=== PATIENT | female | born 1945 | race Caucasian/White ===

== ENCOUNTER 2022-05-28 22:36 | Inpatient (IN) | payer BC, OTHER ==
[~2022-05-28] VITALS: Ht 160 cm; Wt 73.0 kg
--- NOTE | 2022-05-28 22:45 | NUR ---
[id number] FROM HOME C/O SOB XFEW DAYS SATTING 95% RA AT TRIAGE. PATIENT IS AAOX4. ABLE TO MAKE NEEDS KNOWN. ON RA. ATTACHED TO MONITOR. VITALS CHECKED.
--- NOTE | 2022-05-28 22:56 | NUR ---
XRAY DONE AT BEDSIDE
--- NOTE | 2022-05-28 22:56 | NUR ---
COVID SWAB DONE AND SENT TO LAB
--- NOTE | 2022-05-28 23:10 | NUR ---
THROUGH FREIGHT ENGINEER AT BEDSIDE
[2022-05-29 00:11] LABS: BASOPHILS % (AUTO) 0.6 % (0.0-2.0); EOSINOPHILS % (AUTO) 2.9 % (0.0-6.0); HEMATOCRIT 35 % (33-45); HEMOGLOBIN 11.2 g/dL (11.5-14.8); LYMPHOCYTES # (AUTO) 1.5 K/uL (0.8-4.8); LYMPHOCYTES % (AUTO) 23.4 % (20.0-44.0); MEAN CORPUSCULAR HGB CONC 32 g/dl (31.0-36.0); MEAN CORPUSCULAR VOLUME 86 fL (82-100); MONOCYTES # (AUTO) 0.7 K/uL (0.1-1.30); MONOCYTES % (AUTO) 11.6 % (2.0-12.0); NEUTROPHILS # (AUTO) 3.9 K/uL (1.8-8.9); NEUTROPHILS % (AUTO) 61.5 % (43.0-81.0); PLATELET COUNT (AUTO) 228 K/uL (150-450); RED BLOOD CELL COUNT(AUTO) 4.06 MIL/uL (4.0-5.2); WHITE BLOOD COUNT (AUTO) 6.3 K/uL (4.3-11.0)
[2022-05-29 00:24] LABS: CARBON DIOXIDE 28 mmol/L (21-32); CHLORIDE 102 mmol/L (98-107); CREATININE 0.9 mg/dL (0.6-1.3); GLUCOSE 100 mg/dL (74-106); POTASSIUM 3.9 mmol/L (3.5-5.1); SODIUM SERUM 136 mmol/L (136-145); UREA NITROGEN, BLOOD 21 mg/dL (7-18)
[2022-05-29 00:38] LABS: ALANINE AMINOTRANSFERASE 301 U/L (12-78); ALBUMIN 3.4 g/dL (3.4-5.0); ALKALINE PHOSPHATASE 239 U/L (46-116); ASPARTATE AMINOTRANSFERASE 94 U/L (15-37); BILIRUBIN,DIRECT 0.2 mg/dL (0.0-0.2); BILIRUBIN,TOTAL 0.8 mg/dL (0.2-1.0); TOTAL PROTEIN, SERUM 7.7 g/dL (6.4-8.2)
[2022-05-29] MEDS ORDERED: ASPIRIN 325 MG TABLET PO ONE (01:00)
[2022-05-29] MEDS ORDERED: ASPIRIN 325 MG TABLET ONE (01:33)
[2022-05-29] MEDS ORDERED: ONDANSETRON HCL/PF 4 MG/2 ML VIAL IVP PRN (02:30)
[2022-05-29] MEDS ORDERED: MAGNESIUM HYDROXIDE 30 ML UDC PO PRN (02:30)
[2022-05-29] MEDS ORDERED: Z GUARD REMEDY 4 OZ OINT TP PRN (02:30)
--- NOTE | 2022-05-29 02:47 | NUR ---
CARMELINA ([facility]) [phone]. GIVE UPDATE TO [facility] Q SHIFT
--- NOTE | 2022-05-29 03:49 | NUR ---
PATIENT REPOSITIONED COMFORTABLY. NEEDS ATTENDED.
--- NOTE | 2022-05-29 04:07 | NUR ---
PLACED ON OXYGEN 3L NASAL CANNULA PRN.
--- NOTE | 2022-05-29 07:40 | NUR ---
DR DUDLEY AT BEDSIDE W/ PT
--- NOTE | 2022-05-29 08:00 | NUR ---
patient needs attended
[2022-05-29] MEDS ORDERED: DULO20CA19 PO (08:21)
[2022-05-29] MEDS ORDERED: APIX5TAB PO (08:21)
[2022-05-29] MEDS ORDERED: GABA-532 PO (08:21)
[2022-05-29] MEDS ORDERED: TOFA11TA PO (08:21)
[2022-05-29] MEDS ORDERED: METO50TA16 PO (08:21)
[2022-05-29] MEDS ORDERED: HYDR-3980 PO (08:21)
[2022-05-29] MEDS ORDERED: LOPE2CAP14 PO (08:21)
[2022-05-29] MEDS ORDERED: CETI10TA14 PO (08:21)
--- NOTE | 2022-05-29 08:51 | NUR ---
SON SEEMA CALLED. LEFT CONTACT # [phone]
[2022-05-29] MEDS ORDERED: ASPIRIN 81 MG TAB.CHEW ONE (09:09)
[2022-05-29] MEDS: ASPIRIN 81 MG TAB.CHEW PO SCH (09:15)
[2022-05-29] MEDS ORDERED: HYDROCODONE/APAP 10/325MG TABLET PO PRN (10:00)
[2022-05-29] MEDS ORDERED: LOPERAMIDE HCL (2 MG CAP) 2 MG CAPSULE PO PRN (10:00)
[2022-05-29] MEDS: FUROSEMIDE 40 MG/4 ML VIAL IV SCH ×2 (10:30→17:00)
[2022-05-29] MEDS ORDERED: FUROSEMIDE 40 MG/4 ML VIAL ONE (10:31)
[2022-05-29 10:47] LABS: BASOPHILS % (AUTO) 0.5 % (0.0-2.0); HEMATOCRIT 37 % (33-45); HEMOGLOBIN 11.6 g/dL (11.5-14.8); LYMPHOCYTES # (AUTO) 0.7 K/uL (0.8-4.8); LYMPHOCYTES % (AUTO) 10.7 % (20.0-44.0); MEAN CORPUSCULAR HGB CONC 32 g/dl (31.0-36.0); MEAN CORPUSCULAR VOLUME 87 fL (82-100); MONOCYTES # (AUTO) 0.7 K/uL (0.1-1.30); MONOCYTES % (AUTO) 10.6 % (2.0-12.0); NEUTROPHILS # (AUTO) 5.2 K/uL (1.8-8.9); NEUTROPHILS % (AUTO) 77.2 % (43.0-81.0); PLATELET COUNT (AUTO) 216 K/uL (150-450); WHITE BLOOD COUNT (AUTO) 6.7 K/uL (4.3-11.0)
[2022-05-29 10:58] LABS: CALCIUM, SERUM 8.6 mg/dL (8.5-10.1); CREATININE 0.9 mg/dL (0.6-1.3); MAGNESIUM 1.9 mg/dL (1.8-2.4); POTASSIUM 4.2 mmol/L (3.5-5.1)
[2022-05-29] MEDS: METOPROLOL TARTRATE 50 MG TABLET PO SCH ×2 (11:00→22:46)
[2022-05-29] MEDS: DULOXETINE HCL 20 MG CAPSULE.DR PO SCH (11:10)
[2022-05-29] MEDS ORDERED: METOPROLOL TARTRATE 50 MG TABLET ONE (11:10)
[2022-05-29] MEDS ORDERED: HYDROCODONE/APAP 10/325MG TABLET ONE ×2 (12:24→17:12)
[2022-05-29] MEDS: HYDROCODONE/APAP 10/325MG TABLET PO PRN ×2 (12:27→17:17)
[2022-05-29] MEDS ORDERED: GABAPENTIN 100 MG CAPSULE ONE ×2 (13:21→17:10)
[2022-05-29] MEDS ORDERED: GABAPENTIN 300 MG CAPSULE ONE ×2 (13:22→17:10)
[2022-05-29] MEDS: GABAPENTIN 400 MG CAPSULE PO SCH ×2 (13:25→17:00)
[2022-05-29] MEDS ORDERED: ATORVASTATIN 10 MG TABLET PO SCH (16:30)
[2022-05-29] MEDS ORDERED: ATORVASTATIN 10 MG TABLET ONE (16:41)
[2022-05-29 17:40] LABS: THYROID STIMULATING HORMONE 1.63 uIU/mL (0.358-3.74)
--- NOTE | 2022-05-29 20:48 | NUR ---
RECEIVED REPORT FROM XENA CORDOBA. PATIENT IS FOR ADMISSION DUE TO NSTEMI. RECEIVED PT ON O2 INH AT 3LPM. WITH IV CATH ON LEFT FA G20. PATIENT IS AAOX4. ABLE TO MAKE NEEDS KNOWN. NO CP, NO SOB NOTED. ATTACHED TO MONITOR. VITALS CHECKED.
--- NOTE | 2022-05-29 21:23 | NUR ---
REPORT GIVEN TO ADE JOINER.
--- NOTE | 2022-05-29 21:24 | NUR ---
UPDATE GIVEN TO TOMMIE STEPHENSON.
--- NOTE | 2022-05-29 22:09 | NUR ---
TRANSFERRED TO ROOM VIA ACLS
[2022-05-29] MEDS: APIXABAN 5 MG TABLET PO SCH (22:46)
[2022-05-29] MEDS: MAG HYDROX/AL HYDROX/SIMETH 30 ML UDC PO PRN (22:47)
[2022-05-30] VITALS: BP 126/71
[2022-05-30] MEDS: HYDROCODONE/APAP 10/325MG TABLET PO PRN ×2 (03:10→14:20)
[2022-05-30 04:00] VITALS: BP 94/58
[2022-05-30] MEDS: MAG HYDROX/AL HYDROX/SIMETH 30 ML UDC PO PRN (05:04)
[2022-05-30 06:44] LABS: CALCIUM, SERUM 8.9 mg/dL (8.5-10.1); CARBON DIOXIDE 30 mmol/L (21-32); CHLORIDE 97 mmol/L (98-107); CREATININE 1.4 mg/dL (0.6-1.3); GLUCOSE 174 mg/dL (74-106); MAGNESIUM 2.6 mg/dL (1.8-2.4); PHOSPHORUS 4.7 mg/dL (2.5-4.9); POTASSIUM 4.1 mmol/L (3.5-5.1); SODIUM SERUM 137 mmol/L (136-145); UREA NITROGEN, BLOOD 49 mg/dL (7-18)
[2022-05-30 06:57] LABS: CHOLESTEROL 277 mg/dL (<200); HDL CHOLESTEROL 61 mg/dL (40-60); LDL 170 mg/dL (0-99); TRIGLYCERIDES 180 mg/dL (30-150)
[2022-05-30 07:04] LABS: ALANINE AMINOTRANSFERASE 312 U/L (12-78); ALBUMIN 3.3 g/dL (3.4-5.0); ALKALINE PHOSPHATASE 248 U/L (46-116); ASPARTATE AMINOTRANSFERASE 116 U/L (15-37); BILIRUBIN,TOTAL 1.6 mg/dL (0.2-1.0); TOTAL PROTEIN, SERUM 7.7 g/dL (6.4-8.2)
--- NOTE | 2022-05-30 07:27 | NUR ---
RN CLOSING NOTE PT A&OX4 BUT TIRED. SKIN IS PALE AND DRY. RESPIRATIONS EVEN AND UNLABORED ON NC @ 3 LPM. LFA 20G IV INTACT. NO ACUTE SIGNS OF DISTRESS. BED LOCKED AND AT LOWEST LEVEL. X2 RAILS UP AND CALL LIGHT WITHIN REACH.
--- NOTE | 2022-05-30 07:45 | NUR ---
RN OPENING NOTE PT IS ALERT AND ORIENTED X2-3. PT IS ON 3 L NASAL CANNULA TOLERATING ABOVE 92% PT ON TELE MONITOR SINUS RHYTM/SINUS TACHYCARDIA..NO SIGNS OF PAIN OR DISCOMFORT NOTED AT THIS TIME. IV INTACT, PATENT AND FLUSHIGN WELL. ALL SAFETY MEASURES IN PLACE.CALL LIGHT WITHIN [facility]. BED LOCKED AT LOWEST POSITION.SIDE RAILS UP X2.
--- NOTE | 2022-05-30 07:55 | NUR ---
notified of critical lab troponin is 74
[2022-05-30 08:00] VITALS: BP 125/69
[2022-05-30 08:04] LABS: BASOPHILS % (AUTO) 0.1 % (0.0-2.0); HEMATOCRIT 36 % (33-45); HEMOGLOBIN 11.5 g/dL (11.5-14.8); LYMPHOCYTES # (AUTO) 0.5 K/uL (0.8-4.8); LYMPHOCYTES % (AUTO) 2.6 % (20.0-44.0); MEAN CORPUSCULAR HGB CONC 32 g/dl (31.0-36.0); MEAN CORPUSCULAR VOLUME 87 fL (82-100); MONOCYTES # (AUTO) 1.3 K/uL (0.1-1.30); MONOCYTES % (AUTO) 6.8 % (2.0-12.0); NEUTROPHILS # (AUTO) 17.1 K/uL (1.8-8.9); NEUTROPHILS % (AUTO) 90.5 % (43.0-81.0); PLATELET COUNT (AUTO) 289 K/uL (150-450); WHITE BLOOD COUNT (AUTO) 18.9 K/uL (4.3-11.0)
[2022-05-30] MEDS: ASPIRIN 81 MG TAB.CHEW PO SCH (08:28)
[2022-05-30] MEDS: FUROSEMIDE 40 MG/4 ML VIAL IV SCH ×2 (08:28→16:48)
[2022-05-30] MEDS: DULOXETINE HCL 20 MG CAPSULE.DR PO SCH (08:28)
[2022-05-30] MEDS: APIXABAN 5 MG TABLET PO SCH ×2 (08:29→20:59)
[2022-05-30] MEDS: ATORVASTATIN 40 MG TABLET PO SCH (08:29)
[2022-05-30] MEDS: GABAPENTIN 400 MG CAPSULE PO SCH ×3 (08:29→16:49)
[2022-05-30] MEDS: METOPROLOL TARTRATE 50 MG TABLET PO SCH ×2 (08:30→21:00)
--- NOTE | 2022-05-30 08:46 | NUR ---
RN NOTE PATIENT REFUSED 0900 LASIX. WITHDRAW FROM VIAL.DISCARDED IT IN SHARPS CONTAINER. 0900 LASIX NOT GIVEN
[2022-05-30] MEDS ORDERED: TOFACITINIB CITRATE 11 MG PO SCH (09:00)
[2022-05-30] MEDS: IV NS 0.9% 1,000 ML IV SCH ×2 (10:24→20:11)
[2022-05-30 12:00] VITALS: BP 102/53
[2022-05-30 16:00] VITALS: BP 101/49
--- NOTE | 2022-05-30 17:00 | NUR ---
RN NOTE SPOKE WITH PT SON CARMELINA AND MARKOS UPDATED ABOUT PT CONDITION.
--- NOTE | 2022-05-30 17:30 | NUR ---
RN NOTE PT REQUESTING ANXIETY MEDICATION. NOTIFIED AND BANK CONSULTANT YOSSI. SY PHOTO PRINT SPECIALIST FOR DR. DUDLEY AT THIS TIME. ORDERED ANXIETY MEDICATION
--- NOTE | 2022-05-30 18:00 | NUR ---
RN NOTE SPOKE WITH CARMELINA PT SON AND UPDATED ABOUT PATIENT CONDITION. PT REQUESTED TO SPEAK WITH DR. VINCENT REGARDING PT CONDITION. NOTIFIED DR. VINCENT.PROVIDED NUMBER TO PT SON TO UPDATE ABOUT CONDITION
--- NOTE | 2022-05-30 19:30 | NUR ---
RN OPENING NOTE PATIENT IS AWAKE IN BED, PATIENT IS CURRENTLY A/O X 1-2 AT THIS TIME. REORIENTED PATIENT TO PLACE AND TIME. PATIENT IS ON 3 LPM VIA NASAL CANNULA, TOLERATING WELL. NO SOB NOTED AT THIS TIME. TELE MONITOR READS ST 105 BPM A THIS TIME. LFA 20G PATENT AND INTACT WITH ONGOING NS AT 100 ML/HR. PATIENT DOES NOT REPORT ANY PAIN AT THIS TIME. SAFETY MEASURES IN PLACE: BED LOCKED AND IN LOWEST POSITION, CALL LIGHT WITHIN REACH, SIDE RAILS UP, BED ALARM ON. WILL MONITOR PATIENT CLOSELY.
[2022-05-30 20:00] VITALS: BP 106/55
--- NOTE | 2022-05-30 20:48 | NUR ---
RN CLOSING NOTE PT IS ALERT AND ORIENTED X2-3. PT IS ON 3 L NASAL CANNULA TOLERATING ABOVE 92% PT ON TELE MONITOR SINUS TACHYCARDIA.NO SIGNS OF PAIN OR DISCOMFORT NOTED AT THIS TIME. IV INTACT, PATENT AND FLUSHING WELL. ALL SAFETY MEASURES IN PLACE.CALL LIGHT WITHIN REACH. BED LOCKED AT LOWEST POSITION.SIDE RAILS UP X2. ENDORSED TO EMT/PARAMEDIC FOR CONTINUITY OF CARE
[2022-05-30] MEDS: ACETAMINOPHEN 325 MG TABLET PO PRN (21:00)
[2022-05-30] MEDS: ALPRAZOLAM 0.25 MG TABLET PO PRN (22:24)
--- NOTE | 2022-05-30 22:24 | NUR ---
RN NOTE PATIENT GIVEN XANAX PATIENT IS ANXIOUS AND RESTLESS.
[2022-05-31] VITALS (7 sets, daily range): BP systolic 84–130; BP diastolic 51–65
[2022-05-31 06:24] LABS: BASOPHILS # (AUTO) 0.1 K/uL (0.0-0.2); BASOPHILS % (AUTO) 0.2 % (0.0-2.0); HEMATOCRIT 28 % (33-45); HEMOGLOBIN 8.6 g/dL (11.5-14.8); MEAN CORPUSCULAR HGB CONC 31 g/dl (31.0-36.0); MEAN CORPUSCULAR VOLUME 88 fL (82-100); MONOCYTES # (AUTO) 1.6 K/uL (0.1-1.30); MONOCYTES % (AUTO) 6.3 % (2.0-12.0); NEUTROPHILS # (AUTO) 22.1 K/uL (1.8-8.9); NEUTROPHILS % (AUTO) 89.5 % (43.0-81.0); PLATELET COUNT (AUTO) 338 K/uL (150-450); RED BLOOD CELL COUNT(AUTO) 3.15 MIL/uL (4.0-5.2); WHITE BLOOD COUNT (AUTO) 24.7 K/uL (4.3-11.0)
[2022-05-31 06:57] LABS: ALBUMIN 2.7 g/dL (3.4-5.0); BILIRUBIN,TOTAL 1.3 mg/dL (0.2-1.0); CALCIUM, SERUM 7.6 mg/dL (8.5-10.1); MAGNESIUM 2.1 mg/dL (1.8-2.4); PHOSPHORUS 2.4 mg/dL (2.5-4.9); POTASSIUM 3.6 mmol/L (3.5-5.1); TOTAL PROTEIN, SERUM 6.3 g/dL (6.4-8.2)
[2022-05-31] MEDS ORDERED: IV NS 0.9% 500 ML IV ONE (07:00)
--- NOTE | 2022-05-31 07:34 | NUR ---
RN CLOSING NOTE PATIENT IS AWAKE IN BED, PATIENT IS CURRENTLY A/O X 1-2 AT THIS TIME. PATIENT IS ON 3 LPM VIA NASAL CANNULA, TOLERATING WELL, 96% O2 SAT. NO SOB NOTED AT THIS TIME. TELE MONITOR READS ST 120S BPM A THIS TIME. INFORMED MD REGARDING PATIENT COMPLAINING OF ABDOMINAL PAIN, PATIENT LOOKING PALE AND HAVING BP AROUND 90S WELL 1 X BLACK STOOL. CHARGE NURSE ORA PRINGLE. MD ORDERED NS 500 ML BOLUS X 1, PROTONIX 40 MG IV Q 12 HR, NPO STATUS, AND STOOL OB. LFA 20G PATENT AND INTACT WITH ONGOING 500 ML BOLUS PER MD ORDER. STOOL OB COLLECTED AND SENT TO LAB, AND PROTONIX 40 MG IV ORDERED. PATIENT DOES NOT REPORT ANY PAIN AT THIS TIME. SAFETY MEASURES IN PLACE: BED LOCKED AND IN LOWEST POSITION, CALL LIGHT WITHIN REACH, SIDE RAILS UP, BED ALARM ON. ALL NEEDS MET AND ATTENDED. ALL ORDERS CARRIED OUT. ENDORSED TO DAY SHIFT NURSE FOR ATUL.
--- NOTE | 2022-05-31 09:00 | NUR ---
PATIENT AMBASSADOR OPENING NOTE PATIENT IS AWAKE IN BED, PATIENT IS CURRENTLY A/O X 1-2 AT THIS TIME. REORIENTED PATIENT TO PLACE AND TIME. PATIENT IS ON 3 LPM VIA NASAL CANNULA, TOLERATING WELL. NO SOB NOTED AT THIS TIME. TELE MONITOR READS ST 113 BPM A THIS TIME. LFA 20G PATENT AND INTACT FLUSHES WELL. PATIENT DOES NOT REPORT ANY PAIN AT THIS TIME. SAFETY MEASURES IN PLACE: BED LOCKED AND IN LOWEST POSITION, CALL LIGHT WITHIN REACH, SIDE RAILS UP, BED ALARM ON. WILL CONTINUE PLAN OF CARE.
[2022-05-31] MEDS: PANTOPRAZOLE 40 MG VIAL IV SCH ×2 (09:05→20:49)
[2022-05-31] MEDS: DULOXETINE HCL 20 MG CAPSULE.DR PO SCH (09:05)
[2022-05-31] MEDS: ATORVASTATIN 40 MG TABLET PO SCH (09:05)
[2022-05-31] MEDS: NEUTRA PHOS 1 POWD.PACKET PO SCH ×2 (09:05→16:22)
[2022-05-31] MEDS: ASPIRIN 81 MG TAB.CHEW PO SCH (09:06)
[2022-05-31] MEDS: METOPROLOL TARTRATE 50 MG TABLET PO SCH ×2 (09:06→21:00)
[2022-05-31] MEDS: GABAPENTIN 400 MG CAPSULE PO SCH ×3 (09:06→16:22)
[2022-05-31 09:39] LABS: BASOPHILS % (AUTO) 0.1 % (0.0-2.0); HEMATOCRIT 29 % (33-45); HEMOGLOBIN 9.1 g/dL (11.5-14.8); LYMPHOCYTES # (AUTO) 1.1 K/uL (0.8-4.8); LYMPHOCYTES % (AUTO) 3.4 % (20.0-44.0); MEAN CORPUSCULAR HGB CONC 32 g/dl (31.0-36.0); MEAN CORPUSCULAR VOLUME 87 fL (82-100); MONOCYTES # (AUTO) 2.6 K/uL (0.1-1.30); MONOCYTES % (AUTO) 7.8 % (2.0-12.0); NEUTROPHILS # (AUTO) 29.5 K/uL (1.8-8.9); NEUTROPHILS % (AUTO) 88.7 % (43.0-81.0); PLATELET COUNT (AUTO) 384 K/uL (150-450); RED BLOOD CELL COUNT(AUTO) 3.35 MIL/uL (4.0-5.2)
[2022-05-31 09:57] LABS: WHITE BLOOD COUNT (AUTO) 33.2 K/uL (4.3-11.0)
--- NOTE | 2022-05-31 10:24 | NUR ---
WOUND CARE CONSULT: RECEIVED REQUEST TO SEE PT FOR LARGE SKIN GROWTH ON LEFT UPPER MEDIAL THIGH, PRESENT ON ADMISSION. SURGICAL CONSULT CALLED TO DR LONDON. DISCUSSED SKIN PROTECTION WITH NURSING STAFF. PT IS INCONTINENT. MD IN AGREEMENT WITH PLAN OF CARE.
--- NOTE | 2022-05-31 10:51 | NUR ---
RENAL NURSE NOTES NOTED WBC HIGH, DR. AL NOTIFIED, AWAITING FOR RESPOND.
[2022-05-31 13:40] LABS: BAND % (MANUAL) 5 % (0.0-5.0); LYMPHOCYTES % (MANUAL) 5 % (16-48); MONOCYTES % (MANUAL) 6 % (0-11.0); NEUTROPHILS % (MANUAL) 84 (42-76)
[2022-05-31] MEDS ORDERED: CEFTRIAXONE 1 G in IV D5W 50 ML IV SCH (15:00)
[2022-05-31] MEDS: CEFEPIME 1 GM in IV D5W 50 ML IV SCH ×2 (15:30→20:49)
[2022-05-31 15:46] LABS: OCCULT BLOOD STOOL POSITIVE (NEGATIVE)
--- NOTE | 2022-05-31 16:14 | NUR ---
ENERGY CONSERVATION ENGINEER NOTES PATIENT OUT FOR STAT CT SCAN.
--- NOTE | 2022-05-31 16:21 | NUR ---
VACUUM TECHNICIAN NOTES PATIENT BACK FROM CT SCAN
[2022-05-31] MEDS: METRONIDAZOLE 500MG/ NS 100ML 500 MG in PREMIX 1 EA IV SCH (17:09)
--- NOTE | 2022-05-31 19:15 | NUR ---
THREAT MONITORING ANALYST OPENING NOTE RECEIVED PT AWAKE IN BED, A/O X 1-2 . REORIENTED PATIENT TO PLACE AND TIME. PATIENT IS ON 2 LPM VIA NC, TOLERATING WELL. NO SOB NOTED AT THIS TIME. TELE MONITOR READS ST HR 111. LFA 20G PATENT AND INTACT FLUSHES WELL. PATIENT DOES NOT REPORT ANY PAIN AT THIS TIME. ALL SAFETY MEASURES IN PLACE: BED LOCKED AND IN LOWEST POSITION, CALL LIGHT WITHIN REACH, SIDE RAILS UP. NOTED ON BILATERAL WRIST RESTRAINT, CHECK FOR CIRCULATION AND SKIN. WILL CONTINUE PLAN OF CARE
--- NOTE | 2022-05-31 19:46 | NUR ---
COAT FELLER CLOSING NOTE PATIENT IS AWAKE IN BED, PATIENT IS CURRENTLY A/O X 1-2 AT THIS TIME. REORIENTED PATIENT TO PLACE AND TIME. PATIENT IS ON 2 LPM VIA NASAL CANNULA, TOLERATING WELL. NO SOB NOTED AT THIS TIME. TELE MONITOR READS ST 117 BPM A THIS TIME. LFA 20G PATENT AND INTACT FLUSHES WELL. NOTED WITH X2 TARRY DIARRHEA, DR. AL AWARE. LABORATORY COLLECTED THE STOOL. ENDORSE TO SASH STICKER NURSE FOR UA COLLECTION. SAFETY MEASURES IN PLACE: BED LOCKED AND IN LOWEST POSITION, CALL LIGHT WITHIN REACH, SIDE RAILS UP, BED ALARM ON. ENDORSED TO NIGHT NURSE FOR ATUL.
[2022-06-01] VITALS: BP 136/71
[2022-06-01] MEDS: METRONIDAZOLE 500MG/ NS 100ML 500 MG in PREMIX 1 EA IV SCH ×5 (00:31→23:25)
--- NOTE | 2022-06-01 00:50 | NUR ---
RN NOTE URINE SAMPLE COLLECTED AND SENT TO LAB
[2022-06-01 04:00] VITALS: BP 129/82
[2022-06-01 04:17] LABS: BILIRUBIN,URINE NEGATIVE (NEGATIVE); COLOR,URINE YELLOW (YELLOW); LEUKOCYTE ESTERASE ,URINE NEGATIVE (NEGATIVE); NITRITE, URINE NEGATIVE (NEGATIVE); PH,URINE 5.5 (5.0-8.0); PROTEIN,URINE NEGATIVE (NEGATIVE); UGLUCOSE NEGATIVE (NEGATIVE); UROBILINOGEN,URINE 0.2 EU/dL (0.2)
[2022-06-01 04:47] LABS: BACTERIA,URINE Rare /HPF (None Seen); RBC,URINE 0-2 /HPF (0-2); WBC,URINE 0-2 /HPF (0-3)
[2022-06-01 04:48] LABS: SQUAMOUS EPITHELIAL CELL,UR Few /HPF (None Seen)
[2022-06-01 04:57] LABS: URIC ACID CRYSTALS,URINE Many /HPF (None Seen)
--- NOTE | 2022-06-01 06:42 | NUR ---
RN CLOSING NOTE PT SLEEPING IN BED. NO SIGNIFICANT CHANGE T/O THE NIGHT. VS STABLE. ALL DUE MEDS GIVEN. PM CARE DONE, TURN AND REPOSITIONED. WILL ENDORSE TO AM SHIFT FOR ATUL.
--- NOTE | 2022-06-01 07:15 | NUR ---
1ST PRESSMAN OPENING NOTE RECEIVED PT AWAKE IN BED, A/O X 1-2 . REORIENTED PATIENT TO PLACE AND TIME. PATIENT IS ON 2 LPM VIA NC, TOLERATING WELL. NO SOB NOTED AT THIS TIME. TELE MONITOR READS ST HR . LFA 20G PATENT AND INTACT FLUSHES WELL. PATIENT DOES NOT COMPLAINED OF ANY PAIN AT THIS TIME. ALL SAFETY MEASURES IN PLACE: BED LOCKED AND IN LOWEST POSITION, CALL LIGHT WITHIN REACH, SIDE RAILS UP. WILL CONTINUETO FALLOW PLAN OF CARE
[2022-06-01 07:21] LABS: BASOPHILS % (AUTO) 0.1 % (0.0-2.0); HEMATOCRIT 23 % (33-45); HEMOGLOBIN 7.5 g/dL (11.5-14.8); LYMPHOCYTES # (AUTO) 0.9 K/uL (0.8-4.8); LYMPHOCYTES % (AUTO) 3.4 % (20.0-44.0); MEAN CORPUSCULAR HGB CONC 33 g/dl (31.0-36.0); MEAN CORPUSCULAR VOLUME 87 fL (82-100); MONOCYTES # (AUTO) 3.1 K/uL (0.1-1.30); MONOCYTES % (AUTO) 11.2 % (2.0-12.0); NEUTROPHILS # (AUTO) 23.6 K/uL (1.8-8.9); NEUTROPHILS % (AUTO) 85.3 % (43.0-81.0); PLATELET COUNT (AUTO) 293 K/uL (150-450); RED BLOOD CELL COUNT(AUTO) 2.64 MIL/uL (4.0-5.2); WHITE BLOOD COUNT (AUTO) 27.6 K/uL (4.3-11.0)
[2022-06-01 08:00] VITALS: BP 140/75
[2022-06-01 08:02] LABS: ALBUMIN 2.8 g/dL (3.4-5.0); BILIRUBIN,TOTAL 1.1 mg/dL (0.2-1.0); CREATININE 0.9 mg/dL (0.6-1.3); MAGNESIUM 1.9 mg/dL (1.8-2.4); POTASSIUM 4.2 mmol/L (3.5-5.1); TOTAL PROTEIN, SERUM 6.5 g/dL (6.4-8.2)
[2022-06-01] MEDS: DULOXETINE HCL 20 MG CAPSULE.DR PO SCH (08:34)
[2022-06-01] MEDS: CEFEPIME 1 GM in IV D5W 50 ML IV SCH ×2 (08:34→21:56)
[2022-06-01] MEDS: ATORVASTATIN 40 MG TABLET PO SCH (08:34)
[2022-06-01] MEDS: ASPIRIN 81 MG TAB.CHEW PO SCH (08:34)
[2022-06-01] MEDS: METOPROLOL TARTRATE 50 MG TABLET PO SCH ×2 (08:35→21:54)
[2022-06-01] MEDS: PANTOPRAZOLE 40 MG VIAL IV SCH ×2 (08:35→21:53)
[2022-06-01] MEDS: GABAPENTIN 400 MG CAPSULE PO SCH ×3 (08:36→16:04)
[2022-06-01 12:00] VITALS: BP 115/65
[2022-06-01 16:00] VITALS: BP 115/65
--- NOTE | 2022-06-01 18:25 | NUR ---
MACHINE STACKER CLOSING NOTE PATIENT IS AWAKE IN BED, A/O X 1-2 AT THIS TIME. REORIENTED PATIENT TO PLACE AND TIME. PATIENT IS ON 2 LPM VIA NASAL CANNULA, TOLERATING WELL. NO SOB NOTED AT THIS TIME. TELE MONITOR READS SR IV ACCESS LFA 22G PATENT AND INTACT FLUSHES WELL. ALL MEDICATIONS WERE ADMINISTERED ALL NEEDS WERE MET . SAFETY MEASURES IN PLACE: BED LOCKED AND IN LOWEST POSITION, CALL LIGHT WITHIN REACH, SIDE RAILS UP, BED ALARM ON. ENDORSED TO NIGHT NURSE FOR ATUL.
--- NOTE | 2022-06-01 19:30 | NUR ---
RN NOTE PATIENT IN BED, AO X 4, IN NO ACUTE DISTRESS, SATURATION AT 100% ON 2L VIA NC, ST ON THE MONITOR, HR IS 101. IV LINE AT RFA PATENT AND FLUSHING WELL, SALINE LOCKED. SAFETY MEASURES IN PLACE, BED IS LOCKED AND AT LOWEST POSITION, HOB ELEVATED, CALL LIGHT WITHIN REACH OF PATIENT. WILL CONT TO MONITOR AND REASSESS.
[2022-06-01 20:00] VITALS: BP 116/62
[2022-06-01] MEDS: HYDROCODONE/APAP 10/325MG TABLET PO PRN (23:26)
[2022-06-02] VITALS (10 sets, daily range): BP systolic 91–130; BP diastolic 41–81
[2022-06-02] MEDS: ZOLPIDEM TARTRATE 5 MG TABLET PO PRN (01:42)
[2022-06-02] MEDS: ALPRAZOLAM 0.25 MG TABLET PO PRN (04:09)
[2022-06-02] MEDS: METRONIDAZOLE 500MG/ NS 100ML 500 MG in PREMIX 1 EA IV SCH ×3 (05:51→18:30)
--- NOTE | 2022-06-02 07:20 | NUR ---
GOLF BALL TRIMMER OPENING NOTE RECEIVED PT IN BED, ASLEEP . PATIENT IS ON 2 LPM VIA NC, TOLERATING WELL. NO SOB NOTED AT THIS TIME. . LFA 20G PATENT AND INTACT FLUSHES WELL. SR ON TELE MONITORPATIENT DOES NOT COMPLAINED OF ANY PAIN AT THIS TIME. ALL SAFETY MEASURES IN PLACE: BED LOCKED AND IN LOWEST POSITION, CALL LIGHT WITHIN REACH, SIDE RAILS UP. WILL CONTINUE TO FALLOW PLAN OF CARE
[2022-06-02] MEDS: ATORVASTATIN 40 MG TABLET PO SCH (08:27)
[2022-06-02] MEDS: GABAPENTIN 400 MG CAPSULE PO SCH ×3 (08:27→16:25)
[2022-06-02] MEDS: PANTOPRAZOLE 40 MG VIAL IV SCH ×2 (08:27→21:35)
[2022-06-02] MEDS: DULOXETINE HCL 20 MG CAPSULE.DR PO SCH (08:27)
[2022-06-02] MEDS: METOPROLOL TARTRATE 50 MG TABLET PO SCH ×2 (09:00→21:00)
[2022-06-02] MEDS: ASPIRIN 81 MG TAB.CHEW PO SCH (09:00)
[2022-06-02] MEDS: CEFEPIME 1 GM in IV D5W 50 ML IV SCH ×2 (09:17→21:35)
[2022-06-02 12:33] LABS: ALBUMIN 2.3 g/dL (3.4-5.0); BILIRUBIN,TOTAL 0.8 mg/dL (0.2-1.0); CALCIUM, SERUM 7.8 mg/dL (8.5-10.1); CREATININE 0.9 mg/dL (0.6-1.3); POTASSIUM 4.2 mmol/L (3.5-5.1); TOTAL PROTEIN, SERUM 5.3 g/dL (6.4-8.2)
[2022-06-02 12:54] LABS: BASOPHILS % (AUTO) 0.1 % (0.0-2.0); EOSINOPHILS % (AUTO) 0.2 % (0.0-6.0); LYMPHOCYTES # (AUTO) 0.7 K/uL (0.8-4.8); LYMPHOCYTES % (AUTO) 5.9 % (20.0-44.0); MEAN CORPUSCULAR HGB CONC 32 g/dl (31.0-36.0); MEAN CORPUSCULAR VOLUME 89 fL (82-100); MONOCYTES # (AUTO) 1.5 K/uL (0.1-1.30); MONOCYTES % (AUTO) 12.1 % (2.0-12.0); NEUTROPHILS % (AUTO) 81.7 % (43.0-81.0); PLATELET COUNT (AUTO) 231 K/uL (150-450); WHITE BLOOD COUNT (AUTO) 12.3 K/uL (4.3-11.0)
[2022-06-02 12:58] LABS: RED BLOOD CELL COUNT(AUTO) 1.92 MIL/uL (4.0-5.2)
[2022-06-02 12:59] LABS: HEMOGLOBIN 5.4 g/dL (11.5-14.8)
[2022-06-02 13:00] LABS: HEMATOCRIT 17 % (33-45)
[2022-06-02 13:36] LABS: LYMPHOCYTES % (MANUAL) 4 % (16-48); MONOCYTES % (MANUAL) 8 % (0-11.0); NEUTROPHILS % (MANUAL) 88 (42-76)
--- NOTE | 2022-06-02 13:51 | NUR ---
RN NOTES: JOY AL CLINICAL DOCUMENTATION NURSE CALLED THE 2 SON TO OBTAIN CONSENT FOR BLOOD TRANSFUSION AND EGD THEY DID NOT CONSENT BLOOD TRANSFUSION AND WANTS TO TALK TO DR NAGEL BEFORE THE PROCEDURE TO SEE IF THEY WILL CONSENT THE PROCEDURE, DR NAGEL MADE AWARE, PER JOY KEEP PT NPO FOR NOW
[2022-06-02] MEDS: IV NS 0.9% 1,000 ML IV PRN (14:45)
--- NOTE | 2022-06-02 19:25 | NUR ---
DIRECTOR MEDICAL WRITING CLOSING NOTE PATIENT IS AWAKE IN BED, A/O X 1-2 AT THIS TIME. REORIENTED PATIENT TO PLACE AND TIME. PATIENT IS ON 2 LPM VIA NASAL CANNULA, TOLERATING WELL. NO SOB NOTED AT THIS TIME. TELE MONITOR READS SR IV ACCESS LFA 22G RUNNING NS AT 75 ML/HR.PT IS NPO FOR EGD TOMORROW. PATENT AND INTACT FLUSHES WELL. ALL MEDICATIONS WERE ADMINISTERED ALL NEEDS WERE MET . SAFETY MEASURES IN PLACE: BED LOCKED AND IN LOWEST POSITION, CALL LIGHT WITHIN REACH, SIDE RAILS UP, BED ALARM ON. ENDORSED TO NIGHT NURSE FOR ATUL.
--- NOTE | 2022-06-02 19:30 | NUR ---
SENIOR INTERIOR DESIGNER OPENING NOTE RECEIVED PT AWAKE IN BED, A/O X 1-2 . REORIENTED PATIENT TO PLACE AND TIME. PATIENT IS ON 2 LPM VIA NC, TOLERATING WELL. NO SOB NOTED AT THIS TIME. TELE MONITOR READS SR. LFA 20G PATENT AND INTACT FLUSHES WELL. PATIENT DOES NOT REPORT ANY PAIN AT THIS TIME. ALL SAFETY MEASURES IN PLACE: BED LOCKED AND IN LOWEST POSITION, CALL LIGHT WITHIN REACH, SIDE RAILS UP. NOTED ON BILATERAL WRIST RESTRAINT, CHECK FOR CIRCULATION AND SKIN. WILL CONTINUE PLAN OF CARE
[2022-06-03] VITALS (16 sets, daily range): BP systolic 80–145; BP diastolic 40–63
[2022-06-03] MEDS ORDERED: LORAZEPAM INJ 2 MG/ML VIAL IV ONE (01:30)
[2022-06-03] MEDS: METRONIDAZOLE 500MG/ NS 100ML 500 MG in PREMIX 1 EA IV SCH ×4 (02:43→18:18)
[2022-06-03 03:30] LABS: BASOPHILS % (AUTO) 0.1 % (0.0-2.0); EOSINOPHILS % (AUTO) 0.4 % (0.0-6.0); HEMATOCRIT 22 % (33-45); LYMPHOCYTES # (AUTO) 0.7 K/uL (0.8-4.8); LYMPHOCYTES % (AUTO) 5.7 % (20.0-44.0); MEAN CORPUSCULAR HGB CONC 32 g/dl (31.0-36.0); MEAN CORPUSCULAR VOLUME 90 fL (82-100); MONOCYTES # (AUTO) 1.3 K/uL (0.1-1.30); MONOCYTES % (AUTO) 10.5 % (2.0-12.0); NEUTROPHILS # (AUTO) 10.1 K/uL (1.8-8.9); NEUTROPHILS % (AUTO) 83.3 % (43.0-81.0); PLATELET COUNT (AUTO) 214 K/uL (150-450); WHITE BLOOD COUNT (AUTO) 12.1 K/uL (4.3-11.0)
--- NOTE | 2022-06-03 03:39 | NUR ---
RN NOTE LAB JUST CALLED FOR CRITICAL HGB OF 7.0
[2022-06-03 03:43] LABS: ALBUMIN 2.4 g/dL (3.4-5.0); BILIRUBIN,TOTAL 1.7 mg/dL (0.2-1.0); CALCIUM, SERUM 7.6 mg/dL (8.5-10.1); CREATININE 0.8 mg/dL (0.6-1.3); TOTAL PROTEIN, SERUM 5.5 g/dL (6.4-8.2)
--- NOTE | 2022-06-03 03:45 | NUR ---
RN NOTE PER PANTS BUSHELER DEMOND GOSS, TRANSFUSE ANOTHER UNIT OF PRBC
--- NOTE | 2022-06-03 04:51 | NUR ---
RN NOTE CALLED LAB TO SEE IF BLOOD WAS READY FOR PICKUP. TON WASN'T THERE AT THE MOMENT
--- NOTE | 2022-06-03 05:23 | NUR ---
RN NOTE CALLED LAB AGAIN NO ANSWER.
--- NOTE | 2022-06-03 05:46 | NUR ---
RN NOTE PER FAUSTINA IN OR. WAIT FOR PT PROCEDURE TO BE DONE, FOR BLOOD TRANSFUSION
--- NOTE | 2022-06-03 06:35 | NUR ---
RN CLOSING NOTE PT SLEEPING IN BED.ALL SIGNIFICANT CHANGES WERE PREVIOUSLY DOCUMENTED. VS STABLE. NPO. PM CARE DONE, TURN AND REPOSITIONED. PT LEFT FOR OR AT 0615 WILL ENDORSE TO AM SHIFT FOR ATUL.
--- NOTE | 2022-06-03 07:22 | NUR ---
RN notes: pt not in room per furnace clerk RN pt went at 6 am for EGD, received 1 unit rbc last night , hemoglobin is 7 after per travel trailer components assembler to give another unit of RBC
--- NOTE | 2022-06-03 07:30 | NUR ---
RN NOTES: PT IS BACK AWAKE ABLE TO ANSWER QUESTION, PER GAYATHRI SURGERY NURSE PT DIAGNOSED WITH ESOPHAGITIS AND HIATAL HERNIA, BIOPSY WAS SENT TO LAB, VITAL SIGNS 149/59 TEMP 100, RR 18 O2 SAT 95% ON O2 2L/MIN VIA NC.WILL MONITOR
[2022-06-03] MEDS: SUCRALFATE 1 G/10 ML UDC GT SCH ×4 (07:49→22:34)
[2022-06-03] MEDS: ACETAMINOPHEN 325 MG TABLET PO PRN (08:45)
[2022-06-03] MEDS: ATORVASTATIN 40 MG TABLET PO SCH (09:32)
[2022-06-03] MEDS: GABAPENTIN 400 MG CAPSULE PO SCH ×3 (09:33→17:38)
[2022-06-03] MEDS: DULOXETINE HCL 20 MG CAPSULE.DR PO SCH (09:33)
[2022-06-03] MEDS: METOPROLOL TARTRATE 50 MG TABLET PO SCH ×3 (09:33→21:00)
[2022-06-03] MEDS: PANTOPRAZOLE 40 MG VIAL IV SCH ×2 (09:33→20:40)
[2022-06-03] MEDS: CEFEPIME 1 GM in IV D5W 50 ML IV SCH ×2 (09:37→20:40)
[2022-06-03] MEDS ORDERED: ACETAMINOPHEN 650 MG/20.3 ML UDC NG ONE (13:00)
[2022-06-03] MEDS ORDERED: IV NS 0.9% 250 ML IV ONE (13:30)
--- NOTE | 2022-06-03 16:36 | NUR ---
RN NOTES: BLOOD TRANSFUSION COMPLETED AT 1521 PER JOY AL NP CANCEL THE 12 NOON TEST DUE TO TRANSFUSION IS ON AND CHECK H&H 1 HOUR POST TRANSFUSION.SCHEDULED FOR 9270
[2022-06-03 16:46] LABS: HEMOGLOBIN 7.6 g/dL (11.5-14.8)
[2022-06-03] MEDS: ENSURE ENLIVE 237 ML LIQUID (VANILLA) PO SCH (18:18)
--- NOTE | 2022-06-03 19:30 | NUR ---
RN OPENING NOTE RECEIVED PT IN BED AWAKE, A/OX2-3, ON 2L O2 VIA NC, TOLERATING WELL NO S/S OF DISTRESS, TELE MONITOR READING SR. IV ACCESS ON RFA AND LFA RUNNING NS@75ML/HR, INTACT AND PATENT. ALL SAFETY MEASURES IN PLACE: BED LOCKED AND IN LOWEST POSITION, CALL LIGHT WITHIN REACH, SIDE RAILS UP, BED ALARM ON.WILL CONTINUE TO MONITOR FOR ATUL.
--- NOTE | 2022-06-03 19:45 | NUR ---
WINDOWS ARCHITECT CLOSING NOTE PATIENT IS AWAKE IN BED, A/O X 3-4 AT THIS TIME. PATIENT IS ON 2 LPM VIA NASAL CANNULA, TOLERATING WELL. NO SOB NOTED AT THIS TIME. TELE MONITOR READS SR IV ACCESS LFA 22G RUNNING NS AT 75 ML/HR.PT DOES NOT LIKE TO EAT BUT SHE WAS ABLE TO DRINK ENSURE SAYING SHE LIKES IT. ALL MEDICATIONS WERE ADMINISTERED ALL NEEDS WERE MET . SAFETY MEASURES IN PLACE: BED LOCKED AND IN LOWEST POSITION, CALL LIGHT WITHIN REACH, SIDE RAILS UP, BED ALARM ON. ENDORSED TO NIGHT NURSE FOR ATUL.
[2022-06-03] MEDS: ALPRAZOLAM 0.25 MG TABLET PO PRN (20:40)
[2022-06-03] MEDS: ZOLPIDEM TARTRATE 5 MG TABLET PO PRN (23:11)
[2022-06-04] VITALS: BP 94/40
[2022-06-04 00:13] LABS: HEMOGLOBIN 7.3 g/dL (11.5-14.8)
[2022-06-04] MEDS ORDERED: METRONIDAZOLE 500MG/ NS 100ML 100 ML IV ONE ×2 (00:39→05:43)
[2022-06-04] MEDS: METRONIDAZOLE 500MG/ NS 100ML 500 MG in PREMIX 1 EA IV SCH ×4 (00:41→17:08)
[2022-06-04 04:00] VITALS: BP 102/48
--- NOTE | 2022-06-04 06:45 | NUR ---
MATERIALS DEVELOPMENT ENGINEER CLOSING NOTES NO SIGNIFICANT CHANGES NOTED ON THIS SHIFT, WILL ENDORSE TO MORNING SHIFT NURSE FOR CONTINUITY OF CARE .
[2022-06-04] MEDS: HYDROCODONE/APAP 10/325MG TABLET PO PRN ×2 (07:02→12:25)
[2022-06-04] MEDS: SUCRALFATE 1 G/10 ML UDC GT SCH ×4 (07:36→21:27)
[2022-06-04 07:39] LABS: BASOPHILS % (AUTO) 0.2 % (0.0-2.0); EOSINOPHILS % (AUTO) 1.3 % (0.0-6.0); HEMATOCRIT 22 % (33-45); HEMOGLOBIN 7.1 g/dL (11.5-14.8); LYMPHOCYTES # (AUTO) 0.7 K/uL (0.8-4.8); MEAN CORPUSCULAR HGB CONC 33 g/dl (31.0-36.0); MEAN CORPUSCULAR VOLUME 90 fL (82-100); MONOCYTES # (AUTO) 1.3 K/uL (0.1-1.30); MONOCYTES % (AUTO) 13.9 % (2.0-12.0); NEUTROPHILS # (AUTO) 7.5 K/uL (1.8-8.9); NEUTROPHILS % (AUTO) 77.6 % (43.0-81.0); PLATELET COUNT (AUTO) 165 K/uL (150-450); RED BLOOD CELL COUNT(AUTO) 2.41 MIL/uL (4.0-5.2); WHITE BLOOD COUNT (AUTO) 9.6 K/uL (4.3-11.0)
--- NOTE | 2022-06-04 07:44 | NUR ---
RN OPENING NOTE PATIENT IS AWAKE IN BED, A/O X 3-4 AT THIS TIME. PATIENT IS ON 2 LPM VIA NASAL CANNULA, TOLERATING WELL. NO SOB NOTED AT THIS TIME. TELE MONITOR ON. IV ACCESS LFA 22G RUNNING NS AT 75 ML/HR. SAFETY MEASURES IN PLACE: BED LOCKED AND IN LOWEST POSITION, CALL LIGHT WITHIN REACH, SIDE RAILS UP, BED ALARM ON.
[2022-06-04 07:56] LABS: ALANINE AMINOTRANSFERASE 45 U/L (12-78); ALBUMIN 2.1 g/dL (3.4-5.0); ALKALINE PHOSPHATASE 76 U/L (46-116); ASPARTATE AMINOTRANSFERASE 26 U/L (15-37); BILIRUBIN,TOTAL 0.8 mg/dL (0.2-1.0); CALCIUM, SERUM 7.1 mg/dL (8.5-10.1); CARBON DIOXIDE 25 mmol/L (21-32); CHLORIDE 103 mmol/L (98-107); CREATININE 0.7 mg/dL (0.6-1.3); GLUCOSE 108 mg/dL (74-106); POTASSIUM 3.4 mmol/L (3.5-5.1); SODIUM SERUM 134 mmol/L (136-145); TOTAL PROTEIN, SERUM 4.9 g/dL (6.4-8.2); UREA NITROGEN, BLOOD 18 mg/dL (7-18)
[2022-06-04 08:00] VITALS: BP 102/42
--- NOTE | 2022-06-04 08:00 | NUR ---
RN NOTE WAS INFORMED BY TRANSIT COACH OPERATOR PT WENT INTO AFIB. PT HAS A HX ANTICOAGULANTS WERE D/C DUE TO GASTRITIS. ORDERED STAT ECG INFORMED DR BROWNE
--- NOTE | 2022-06-04 08:12 | NUR ---
RN NOTE PATIENT IS REFUSING STAT ECG PROVIDED EDUCATION ON IMPORTANCE PT STILL REFUSED WILL INFORM PROVIDED AND ATTEMPT TO DO ECG AGAIN
[2022-06-04] MEDS: METOPROLOL TARTRATE 50 MG TABLET PO SCH ×2 (09:00→21:00)
[2022-06-04] MEDS: PANTOPRAZOLE 40 MG VIAL IV SCH ×2 (09:26→21:28)
[2022-06-04] MEDS: DULOXETINE HCL 20 MG CAPSULE.DR PO SCH (09:26)
[2022-06-04] MEDS: CEFEPIME 1 GM in IV D5W 50 ML IV SCH ×2 (09:26→21:27)
[2022-06-04] MEDS: ATORVASTATIN 40 MG TABLET PO SCH (09:26)
[2022-06-04] MEDS: GABAPENTIN 400 MG CAPSULE PO SCH ×3 (09:26→17:07)
[2022-06-04] MEDS: ENSURE ENLIVE 237 ML LIQUID (VANILLA) PO SCH ×3 (09:44→17:07)
--- NOTE | 2022-06-04 09:46 | NUR ---
RN NOTE ECG DONE READING RATE 146 AFIB RECEIVED ORDER FOR CARDIZEM 10MG IVP ORDERS PLACED
[2022-06-04] MEDS ORDERED: DILTIAZEM HCL 25 MG IV IV ONE (10:00)
[2022-06-04] MEDS ORDERED: POTASSIUM CHLORIDE 20 MEQ POWDER PACKET PO ONE ×2 (11:00→11:30)
[2022-06-04] MEDS ORDERED: DILTIAZEM HCL IV 125 MG in IV NS 0.9% 100 ML IV PRN (11:00)
[2022-06-04 12:00] VITALS: BP 107/51
--- NOTE | 2022-06-04 13:29 | NUR ---
RN NOTE INFOMRED DR BROWNE REGARDING PATIENT PAIN RECEIVED ORDER FOR MORPHINE 2MG IV Q4H PRN PAIN. ORDERS PLACED. ALSO ORDER TROPONIN. ORDERS PLACED
[2022-06-04] MEDS: MORPHINE SULFATE INJ 2 MG/ML DISP.SYRIN IV PRN ×2 (13:33→19:08)
[2022-06-04 14:45] LABS: EOSINOPHILS % (MANUAL) 2 % (0-4); LYMPHOCYTES % (MANUAL) 6 % (16-48); MONOCYTES % (MANUAL) 14 % (0-11.0); NEUTROPHILS % (MANUAL) 78 (42-76)
[2022-06-04 16:00] VITALS: BP 103/47
[2022-06-04] MEDS: IV NS 0.9% 1,000 ML IV PRN (17:09)
--- NOTE | 2022-06-04 18:39 | NUR ---
RN CLOSING NOTE PATIENT IS AWAKE IN BED, A/O X 3-4 AT THIS TIME. PATIENT IS ON 2 LPM VIA NASAL CANNULA, TOLERATING WELL. NO SOB NOTED AT THIS TIME. TELE MONITOR READS SR IV ACCESS LFA 22G RUNNING NS AT 75 ML/HR.CARDIZEM RUNNING 5MLS/HR. PT IS SR 91 ON TELE MONITOR. ALL MEDICATIONS WERE ADMINISTERED ALL NEEDS WERE MET . SAFETY MEASURES IN PLACE: BED LOCKED AND IN LOWEST POSITION, CALL LIGHT WITHIN REACH, SIDE RAILS UP, BED ALARM ON. ENDORSED TO NIGHT NURSE FOR ATUL.
--- NOTE | 2022-06-04 19:30 | NUR ---
RN OPENING NOTE RECEIVED PT IN BED AWAKE, A/OX2-3, ON 2L O2 VIA NC, TOLERATING WELL NO S/S OF DISTRESS, TELE MONITOR READING SR. IV ACCESS ON RFA AND LFA RUNNING NS@75ML/HR, CARDIZEM RUNNING 5ML/HR,INTACT AND PATENT. ALL SAFETY MEASURES IN PLACE: BED LOCKED AND IN LOWEST POSITION, CALL LIGHT WITHIN REACH, SIDE RAILS UP, BED ALARM ON.WILL CONTINUE TO MONITOR FOR ATUL.
[2022-06-04 20:00] VITALS: BP 102/45
[2022-06-05] VITALS: BP 110/46
[2022-06-05] MEDS: METRONIDAZOLE 500MG/ NS 100ML 500 MG in PREMIX 1 EA IV SCH ×3 (01:21→11:08)
[2022-06-05 03:17] LABS: BASOPHILS % (AUTO) 0.2 % (0.0-2.0); EOSINOPHILS % (AUTO) 2.5 % (0.0-6.0); HEMATOCRIT 23 % (33-45); HEMOGLOBIN 7.4 g/dL (11.5-14.8); LYMPHOCYTES # (AUTO) 0.3 K/uL (0.8-4.8); LYMPHOCYTES % (AUTO) 2.5 % (20.0-44.0); MEAN CORPUSCULAR HGB CONC 33 g/dl (31.0-36.0); MEAN CORPUSCULAR VOLUME 90 fL (82-100); MONOCYTES # (AUTO) 2.8 K/uL (0.1-1.30); NEUTROPHILS # (AUTO) 7.1 K/uL (1.8-8.9); NEUTROPHILS % (AUTO) 67.8 % (43.0-81.0); PLATELET COUNT (AUTO) 164 K/uL (150-450); WHITE BLOOD COUNT (AUTO) 10.4 K/uL (4.3-11.0)
[2022-06-05 03:30] LABS: ALANINE AMINOTRANSFERASE 39 U/L (12-78); ALKALINE PHOSPHATASE 76 U/L (46-116); ASPARTATE AMINOTRANSFERASE 21 U/L (15-37); BILIRUBIN,TOTAL 0.6 mg/dL (0.2-1.0); CALCIUM, SERUM 7.2 mg/dL (8.5-10.1); CARBON DIOXIDE 22 mmol/L (21-32); CHLORIDE 105 mmol/L (98-107); CREATININE 0.7 mg/dL (0.6-1.3); GLUCOSE 118 mg/dL (74-106); MAGNESIUM 1.9 mg/dL (1.8-2.4); PHOSPHORUS 2.3 mg/dL (2.5-4.9); POTASSIUM 3.7 mmol/L (3.5-5.1); SODIUM SERUM 133 mmol/L (136-145); TOTAL PROTEIN, SERUM 5.1 g/dL (6.4-8.2); UREA NITROGEN, BLOOD 17 mg/dL (7-18)
[2022-06-05 04:00] VITALS: BP 108/51
[2022-06-05 04:59] LABS: BAND % (MANUAL) 3 % (0.0-5.0); BASOPHILS % (MANUAL) 0 % (0.0-2.0); EOSINOPHILS % (MANUAL) 2 % (0-4); LYMPHOCYTES % (MANUAL) 8 % (16-48); MONOCYTES % (MANUAL) 4 % (0-11.0); NEUTROPHILS % (MANUAL) 83 (42-76)
--- NOTE | 2022-06-05 06:55 | NUR ---
ASSISTANT AT SURGERY CLOSING NOTES NO SIGNIFICANT CHANGES NOTED ON THIS SHIFT, WILL ENDORSE TO MORNING SHIFT NURSE FOR CONTINUITY OF CARE .
--- NOTE | 2022-06-05 07:27 | NUR ---
RN OPENING NOTE PATIENT IS AWAKE IN BED, A/O X 3-4 AT THIS TIME. PATIENT IS ON 2 LPM VIA NASAL CANNULA, TOLERATING WELL. NO SOB NOTED AT THIS TIME. TELE MONITOR ON. IV ACCESS LFA 22G RUNNING NS AT 75 ML/HR. RUNNING CARDIZEM 5MLS/HR. SAFETY MEASURES IN PLACE: BED LOCKED AND IN LOWEST POSITION, CALL LIGHT WITHIN REACH, SIDE RAILS UP, BED ALARM ON.
[2022-06-05] MEDS: SUCRALFATE 1 G/10 ML UDC GT SCH ×4 (07:38→21:07)
[2022-06-05] MEDS: MORPHINE SULFATE INJ 2 MG/ML DISP.SYRIN IV PRN ×2 (07:38→14:26)
[2022-06-05 08:00] VITALS: BP 129/63
[2022-06-05] MEDS: DULOXETINE HCL 20 MG CAPSULE.DR PO SCH (08:27)
[2022-06-05] MEDS: CEFEPIME 1 GM in IV D5W 50 ML IV SCH ×2 (08:27→20:37)
[2022-06-05] MEDS: METOPROLOL TARTRATE 50 MG TABLET PO SCH ×2 (08:27→21:48)
[2022-06-05] MEDS: GABAPENTIN 400 MG CAPSULE PO SCH ×3 (08:27→16:04)
[2022-06-05] MEDS: ATORVASTATIN 40 MG TABLET PO SCH (08:27)
[2022-06-05] MEDS: PANTOPRAZOLE 40 MG VIAL IV SCH ×2 (08:29→20:37)
[2022-06-05] MEDS: ENSURE ENLIVE 237 ML LIQUID (VANILLA) PO SCH ×3 (08:45→17:19)
[2022-06-05] MEDS ORDERED: Magnesium 1GM/D5W 100ML PREMIX 100 ML IV SCH (10:00)
[2022-06-05] MEDS ORDERED: POTASSIUM CHLORIDE 20 MEQ TAB.PRT.SR PO ONE (10:00)
[2022-06-05] MEDS ORDERED: Magnesium 1GM/D5W 100ML PREMIX PIGGYBACK IV ONE (10:00)
[2022-06-05] MEDS: ALPRAZOLAM 0.25 MG TABLET PO PRN ×2 (11:06→20:40)
[2022-06-05 12:00] VITALS: BP 99/50
[2022-06-05] MEDS: METRONIDAZOLE 500 MG TABLET PO SCH ×3 (12:03→23:50)
[2022-06-05] MEDS ORDERED: PANT40TA2 PO (15:36)
[2022-06-05] MEDS ORDERED: SUCR1ORA6 GT (15:36)
[2022-06-05] MEDS ORDERED: METR500T PO (15:36)
[2022-06-05] MEDS ORDERED: ATOR40TA PO (15:36)
[2022-06-05 16:00] VITALS: BP 103/49
[2022-06-05] MEDS ORDERED: K PHOS NEUTRAL 250 MG TABLET PO ONE (16:00)
[2022-06-05] MEDS: IV NS 0.9% 1,000 ML IV PRN (17:21)
[2022-06-05 20:00] VITALS: BP 100/54
[2022-06-06 00:10] VITALS: BP 97/58
[2022-06-06 05:25] VITALS: BP 110/58
[2022-06-06] MEDS: METRONIDAZOLE 500 MG TABLET PO SCH ×3 (06:20→17:43)
[2022-06-06 06:25] LABS: BASOPHILS % (AUTO) 0.2 % (0.0-2.0); EOSINOPHILS % (AUTO) 1.5 % (0.0-6.0); HEMATOCRIT 24 % (33-45); HEMOGLOBIN 7.7 g/dL (11.5-14.8); LYMPHOCYTES # (AUTO) 0.5 K/uL (0.8-4.8); LYMPHOCYTES % (AUTO) 5.5 % (20.0-44.0); MEAN CORPUSCULAR HGB CONC 33 g/dl (31.0-36.0); MEAN CORPUSCULAR VOLUME 90 fL (82-100); MONOCYTES # (AUTO) 1.4 K/uL (0.1-1.30); MONOCYTES % (AUTO) 14.4 % (2.0-12.0); NEUTROPHILS # (AUTO) 7.3 K/uL (1.8-8.9); NEUTROPHILS % (AUTO) 78.4 % (43.0-81.0); PLATELET COUNT (AUTO) 145 K/uL (150-450); RED BLOOD CELL COUNT(AUTO) 2.62 MIL/uL (4.0-5.2); WHITE BLOOD COUNT (AUTO) 9.4 K/uL (4.3-11.0)
[2022-06-06 06:28] LABS: ALANINE AMINOTRANSFERASE 30 U/L (12-78); ALBUMIN 2.1 g/dL (3.4-5.0); ALKALINE PHOSPHATASE 71 U/L (46-116); ASPARTATE AMINOTRANSFERASE 16 U/L (15-37); BILIRUBIN,TOTAL 0.7 mg/dL (0.2-1.0); CALCIUM, SERUM 7.1 mg/dL (8.5-10.1); CARBON DIOXIDE 27 mmol/L (21-32); CHLORIDE 103 mmol/L (98-107); CREATININE 0.7 mg/dL (0.6-1.3); GLUCOSE 114 mg/dL (74-106); POTASSIUM 3.5 mmol/L (3.5-5.1); SODIUM SERUM 133 mmol/L (136-145); UREA NITROGEN, BLOOD 11 mg/dL (7-18)
[2022-06-06] MEDS: SUCRALFATE 1 G/10 ML UDC GT SCH (06:30)
--- NOTE | 2022-06-06 07:32 | NUR ---
RN notes Received patient in bed without any active complaint. Tele box showed SR 60/min. No SOB with 2L of oxygen use via NC. Right UA ML is dry and intact with NS running at 75mL/hr. Call oscar is placed within reach. Bed is locked and placed in the lowest position. All safety measures have been implemented. Will continue monitoring and care.
[2022-06-06 08:00] VITALS: BP 113/58
[2022-06-06] MEDS: ENSURE ENLIVE 237 ML LIQUID (VANILLA) PO SCH ×3 (08:48→17:44)
[2022-06-06] MEDS: PANTOPRAZOLE 40 MG VIAL IV SCH ×2 (09:35→21:28)
[2022-06-06] MEDS: GABAPENTIN 400 MG CAPSULE PO SCH ×3 (09:37→17:44)
[2022-06-06] MEDS: CEFEPIME 1 GM in IV D5W 50 ML IV SCH ×2 (09:37→21:28)
[2022-06-06] MEDS: ATORVASTATIN 40 MG TABLET PO SCH (09:37)
[2022-06-06] MEDS: DULOXETINE HCL 20 MG CAPSULE.DR PO SCH (09:37)
[2022-06-06] MEDS: METOPROLOL TARTRATE 50 MG TABLET PO SCH ×2 (09:37→21:29)
[2022-06-06] MEDS: IV NS 0.9% 1,000 ML IV PRN (09:38)
--- NOTE | 2022-06-06 10:00 | NUR ---
RN notes: Tried to wean off oxygen. SpO2 92%, RR 18/min. No SOB. Willl keep observation.
[2022-06-06 10:52] LABS: BAND % (MANUAL) 3 % (0.0-5.0); BASOPHILS % (MANUAL) 0 % (0.0-2.0); EOSINOPHILS % (MANUAL) 0 % (0-4); LYMPHOCYTES % (MANUAL) 8 % (16-48); MONOCYTES % (MANUAL) 6 % (0-11.0); NEUTROPHILS % (MANUAL) 83 (42-76)
[2022-06-06 12:00] VITALS: BP 134/72
[2022-06-06] MEDS: SUCRALFATE 1 G TABLET PO SCH ×3 (12:11→21:29)
--- NOTE | 2022-06-06 14:30 | NUR ---
COVID-19 rapid antigen test is sent.
[2022-06-06 16:00] VITALS: BP 128/57
--- NOTE | 2022-06-06 16:54 | NUR ---
RN note Gave 1L oxygen back to patient as her SPO2 drops to 90%,RR19/min. No SOB.
[2022-06-06] MEDS: MEGESTROL ACETATE 40 MG TABLET PO SCH (17:44)
--- NOTE | 2022-06-06 18:33 | NUR ---
RN notes Patient is resting in bed without any active complaint. Tele box showed SR 89/min. No SOB with 1L of oxygen use via NC, SpO2 95%. Right UA ML is dry and intact with NS running at 75mL/hr. Call oscar is placed within reach. Bed is locked and placed in the lowest position. All safety measures have been implemented. Will endorse PM nurse to continue care.
[2022-06-06 22:27] VITALS: BP 124/75
[2022-06-07 01:03] VITALS: BP 122/76
[2022-06-07 05:07] VITALS: BP 101/57
[2022-06-07] MEDS: METRONIDAZOLE 500 MG TABLET PO SCH ×4 (06:43→17:03)
[2022-06-07] MEDS: SUCRALFATE 1 G TABLET PO SCH ×3 (06:43→16:51)
--- NOTE | 2022-06-07 07:15 | NUR ---
RN OPENING NOTE PATIENT IS AWAKE IN BED, A/O X 3-4 AT THIS TIME. PATIENT IS ON 1 LPM VIA NASAL CANNULA, TOLERATING WELL. NO SOB NOTED AT THIS TIME. TELE MONITOR ON. SR IV ACCESS YASMIN MID LINE RUNNING NS AT 75 ML/HR. SAFETY MEASURES IN PLACE: BED LOCKED AND IN LOWEST POSITION, CALL LIGHT WITHIN REACH, SIDE RAILS UP, BED ALARM ON , WILL CONTINUE TO MONITOR
[2022-06-07 08:00] VITALS: BP 132/71
[2022-06-07] MEDS: ATORVASTATIN 40 MG TABLET PO SCH (08:28)
[2022-06-07] MEDS: PANTOPRAZOLE 40 MG VIAL IV SCH (08:28)
[2022-06-07] MEDS: MEGESTROL ACETATE 40 MG TABLET PO SCH (08:28)
[2022-06-07] MEDS: METOPROLOL TARTRATE 50 MG TABLET PO SCH (08:29)
[2022-06-07] MEDS: GABAPENTIN 400 MG CAPSULE PO SCH ×3 (08:29→16:51)
[2022-06-07] MEDS: ENSURE ENLIVE 237 ML LIQUID (VANILLA) PO SCH ×3 (08:37→17:10)
[2022-06-07] MEDS: CEFEPIME 1 GM in IV D5W 50 ML IV SCH (08:38)
[2022-06-07] MEDS: DULOXETINE HCL 20 MG CAPSULE.DR PO SCH (08:39)
[2022-06-07 12:07] VITALS: BP 125/70
[2022-06-07 16:00] VITALS: BP 141/84
[2022-06-07] MEDS ORDERED: MEGESTROL ACETATE SUSP 400 MG/10 ML UDC PO SCH (17:00)
[2022-06-07] MEDS ORDERED: APIXABAN 5 MG TABLET PO SCH (17:00)
--- NOTE | 2022-06-07 18:26 | NUR ---
RN NOTE PATIENT IS AT STABLE CONDITION .TRANSFERED TO THE SNF . REPORT WAS GIVEN TO THE RN BETHANY . DISCHARGE INSTRUCTIONS PROVIDED TO THE PATIENT VERBALLY AND IN WRITTEN TO THE PARAMEDICS .
== END 2022-06-07 18:54 | DRG 871 ==
LOC: ER 22:51 → TRANSITION 05-29 08:29 → TELE1 05-29 20:44 → TELE-TD 06-04 10:50 → TELE1 06-05 13:48
PROVIDERS: ADMIT Internal Medicine; ATTEND Student in an Organized Health Care Education/Training Program
PROC: 30233N1 Transfusion of Nonautologous Red Blood Cells into Peripheral Vein, Percutaneous Approach (ICD-10-PCS; 2022-06-02)
PROC: 0DB68ZX Excision of Stomach, Via Natural or Artificial Opening Endoscopic, Diagnostic (ICD-10-PCS; principal; 2022-06-03)
PROC: 05HB33Z Insertion of Infusion Device into Right Basilic Vein, Percutaneous Approach (ICD-10-PCS; 2022-06-05)
DX: A41.9 Sepsis, unspecified organism (principal); I21.A1 Myocardial infarction type 2; I50.33 Acute on chronic diastolic (congestive) heart failure; K29.71 Gastritis, unspecified, with bleeding; K22.11 Ulcer of esophagus with bleeding; N17.0 Acute kidney failure with tubular necrosis; J98.11 Atelectasis; E87.1 Hypo-osmolality and hyponatremia; I11.0 Hypertensive heart disease with heart failure; Z20.822 Contact with and (suspected) exposure to COVID-19; K44.9 Diaphragmatic hernia without obstruction or gangrene; K31.7 Polyp of stomach and duodenum; M06.9 Rheumatoid arthritis, unspecified; F41.9 Anxiety disorder, unspecified; Z88.0 Allergy status to penicillin; M19.90 Unspecified osteoarthritis, unspecified site; Z79.01 Long term (current) use of anticoagulants; Z79.899 Other long term (current) drug therapy; I48.91 Unspecified atrial fibrillation; E88.09 Other disorders of plasma-protein metabolism, not elsewhere classified; F32.9 Major depressive disorder, single episode, unspecified; G89.29 Other chronic pain; E83.39 Other disorders of phosphorus metabolism; R74.01 Elevation of levels of liver transaminase levels; E66.9 Obesity, unspecified; Z68.28 Body mass index [BMI] 28.0-28.9, adult; E83.41 Hypermagnesemia; K62.89 Other specified diseases of anus and rectum; K80.20 Calculus of gallbladder without cholecystitis without obstruction; E87.6 Hypokalemia; R19.7 Diarrhea, unspecified
CPT/HCPCS: 36410; 36415; 71045-TC; 74018; 76700-TC; 80048-TC; 80053-TC; 80061-TC; 80076-TC; 81001; 82272-TC; 83735-TC; 83880; 84100-TC; 84439-TC; 84443-TC; 84484-TC; 85025-TC; 85027-TC; 85730-TC; 86850-TC; 87040-TC; 87086-TC; 93307-TC; 94799-TC; 97110-TC; 97116-TC; 97530-TC; 97535-TC; A4216; C9113; C9803; G0378; J0692; J1940; J2060; J2270; J2405; J2704; J3475; J3490; J7030; J7040; J7050; J7060; P9016